=== PATIENT | male | born 1965 | race African-American/Black ===

== ENCOUNTER → 2017-12-09 | Outpatient (CLI) | payer OTHER ==
[~2017-12-09] MED LIST: ASPI-435 PO; GARL400T4 PO; GLUC1CAP28 PO; MONT1TAB3 PO; MULT-884 PO; NAPR1TAB9 PO; PLMIN90 PO
--- NOTE | 2017-12-09 15:49 | DIAGNOSTIC IMAGING REPORT ---
LUMBAR SPINE W/O CONTRAST CLINICAL HISTORY: 52 years-old Male presenting with LE NUMBNESS,SCIATICA. TECHNIQUE: Multisequence, multiplanar MR imaging of the lumbar spine was performed without the use of intravenous contrast. IV contrast: None. COMPARISON: None. FINDINGS: Localizer images: Unremarkable. Normal lumbar lordosis. Vertebral bodies maintain normal height, alignment, and bone marrow signal intensity. Intervertebral discs demonstrate mild desiccation without significant height loss at L5-S1. At this level, there is a mild disc bulge without evidence of significant spinal canal stenosis. However, disc bulge and facet arthropathy at this level results in moderate right and mild left neural foraminal narrowing. Abutment of the exiting L5 nerve root on the right. The remaining levels do not demonstrate significant spinal canal or neural foraminal narrowing. Spinal cord ends in good position at the inferior endplate of L1. Cauda equina normal morphology. Paraspinal musculature normal. Incidental note made of aneurysmal dilatation of the bilateral common iliac arteries, which measure 3.2 cm on the right and 2.9 cm on the left. Ectasia of the aortic bifurcation. IMPRESSION: 1. Focal degenerative change at L5-S1 with moderate right and mild left neural foraminal narrowing. Abutment of the exiting right L5 nerve root. 2. 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 This be better demonstrated on CTA. The report will be called/faxed according to standard departmental protocol. Electronically signed by: Dashawn Palacios M.D. 12/09/2017 3:48 PM Dictated Date/Time: 12/09/2017 3:44 PM
== END | disposition home or self-care (01) ==
LOC: C.MRIBC 14:56
PROVIDERS: ATTEND Family Medicine
DX: R20.0 Anesthesia of skin (principal); M54.30 Sciatica, unspecified side; I72.3 Aneurysm of iliac artery

== ENCOUNTER → 2017-12-19 | Outpatient (CLI) | payer OTHER ==
--- NOTE | 2017-12-19 07:51 | DIAGNOSTIC IMAGING REPORT ---
CT LUNG SCREENING, LOW DOSE WITH COMPUTER-AIDED DETECTION (CAD) CLINICAL HISTORY: 52 years-old Male presenting with lung cancer screening, nicotine dependence. CT DOSE (mGy.cm): The estimated cumulative dose is 104.87 mGy.cm. TECHNIQUE: Multidetector CT imaging of the chest was performed without the use of intravenous contrast. IV contrast: None. A dose lowering technique was used consistent with the principles of ALARA (as low as reasonably achievable). Additional postprocessing was performed on a separate [employer] retargeting workstation by the radiologist for computer-aided detection and 3-D volumetric segmentation of pulmonary nodules. COMPARISON: None. FINDINGS: Phlebotomist Associate topogram: Unremarkable. On soft tissue windows, bilateral gynecomastia. No axillary, supraclavicular, or mediastinal lymphadenopathy. Evaluation of the hossein limited without intravenous contrast. Atherosclerosis of the aorta. Normal heart size. Minimal coronary artery calcification. No pericardial or pleural effusion. Upper abdomen normal. On lung windows, partially solid, partially subsolid 3 mm nodule in the superior segment of the lingula (series 4 image 114). No other nodule or infiltrate. Airways patent. On bone windows, degenerative changes of the spine. CAD FINDINGS: Overall Lung RADS Category: 2 Lung RADS Management Recommendation: Continue annual lung cancer screening. Lung RADS Follow Up Date: 2018-12-19 Lung RADS Nodule ID: 1 IMPRESSION: 1. 3 mm subsolid nodule in the superior segment of the lingula. Continue annual lung cancer screening. Electronically signed by: Dashawn Palacios M.D. 12/19/2017 7:50 AM Dictated Date/Time: 12/19/2017 7:38 AM
== END | disposition home or self-care (01) ==
LOC: C.CTS 07:22
PROVIDERS: ATTEND Family Medicine
DX: Z12.2 Encounter for screening for malignant neoplasm of respiratory organs (principal); R91.8 Other nonspecific abnormal finding of lung field

== ENCOUNTER → 2018-01-03 | Outpatient (CLI) | payer OTHER ==
[~2018-01-03] MED LIST changes: +OPTIRAY 320 IV PRN
--- NOTE | 2018-01-03 08:32 | DIAGNOSTIC IMAGING REPORT ---
ANGIO AA MJ LE RUNOFF CLINICAL HISTORY: 52 years-old Male presenting with ANEURYSM OF ILIAC ARTERY. TECHNIQUE: Multidetector CT angiography of the abdomen and pelvis and bilateral lower extremity runoff was performed before and after the administration of intravenous contrast. 3-D volumetric, curved planar reformatted and/or maximum intensity projection (MIP) images were subsequently reconstructed for review. IV contrast: None. A dose lowering technique was used consistent with the principles of ALARA (as low as reasonably achievable). Stenosis measurements were based on NASCET-like criteria. COMPARISON: None. CT DOSE (mGy.cm): The estimated cumulative dose is 3990.12 mGy.cm. FINDINGS: Heel Sander Rubber topogram: Unremarkable. Vasculature: Minimal ectasia of the infrarenal abdominal aorta, which measures up to 2.9 cm in diameter. No significant atherosclerosis of the aorta. Celiac, superior mesenteric, bilateral single main renal, and inferior mesenteric arteries patent. The hepatic artery is replaced off the superior mesenteric artery. Aneurysmal dilatation of the bilateral common iliac arteries, which measure 3 cm on the right and 2.3 cm on the left. Mild aneurysmal dilatation of the left internal iliac artery, which measures 1.4 cm in diameter. The bilateral external iliac arteries and the right internal iliac artery are patent and normal in caliber. Bilateral common femoral, superficial femoral, and deep femoral arteries patent. Mild atherosclerosis. Poor contrast opacification of the popliteal arteries bilaterally, which are widely patent proximally. Poor contrast opacification throughout the lower legs due to the timing of the contrast bolus. Therefore, patency cannot be assessed in the lower legs. Remaining abdomen and pelvis: Lung bases: Minimal basilar opacities, likely atelectasis. Normal heart size. No pericardial or pleural effusion. Liver: Normal morphology. Density consistent with heterogeneous hepatic steatosis. No focal lesion allowing for the early arterial phase of contrast. Biliary: No intrahepatic or extrahepatic biliary ductal dilatation. Normal gallbladder. Pancreas: Pancreas divisum. Pancreatic parenchyma normal. Spleen: Normal. Adrenal glands: Normal. Kidneys and ureters: Normal. No hydronephrosis. Bladder: Incompletely evaluated secondary to underdistention. Pelvic organs: Prostate enlargement likely secondary to benign prostatic hyperplasia. Bowel: Diverticulosis of the sigmoid and descending colon. Wall thickening of the sigmoid colon suggests circular muscle hyperplasia/chronic diverticular disease. No pericolonic fat infiltration. The appendix is normal. No bowel obstruction. Peritoneal cavity: No free fluid or intraperitoneal gas. 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 Lymph nodes: No enlarged lymph nodes in the abdomen or pelvis. Abdominal wall: Small fat-containing umbilical hernia. Musculoskeletal: Degenerative changes of the spine. IMPRESSION: 1. Minimal ectasia of the infrarenal abdominal aorta, which measures 2.9 cm. 2. Aneurysmal dilatation of the bilateral common iliac arteries greater on the right. The right common iliac artery measures 3 cm in diameter. 3. Mild aneurysmal dilatation of the left internal iliac artery, which measures 1.4 cm in diameter. 4. Due to the timing of the contrast bolus, the mid to distal popliteal arteries and lower leg arteries cannot be assessed. Apart from this, remainder of the vessels are patent throughout the abdomen, pelvis, and lower extremities. 5. Diverticulosis with evidence of circular muscle hyperplasia/chronic diverticular disease of the sigmoid colon. No evidence of acute diverticulitis. Electronically signed by: Dashawn Palacios M.D. 01/03/2018 8:31 AM Dictated Date/Time: 01/03/2018 8:19 AM
== END | disposition home or self-care (01) ==
LOC: C.CTS 07:35
PROVIDERS: ATTEND Physician Assistant
DX: I72.3 Aneurysm of iliac artery (principal)